=== PATIENT | male | born 1965 | race Caucasian/White ===

== ENCOUNTER 2016-12-08 18:44 | Emergency (ER) | payer OTHER ==
[2016-12-08 18:47] VITALS: BP 145/95
--- NOTE | 2016-12-08 19:53 | RAD ---
HISTORY: Trauma COMPARISONS: MRI dated August 06, 2015 TECHNIQUE: Multiple contiguous axial CT scans were obtained of the head without intravenous contrast. FINDINGS: HEMORRHAGE/INFARCT: There is no hemorrhage or acute infarct. MASSES/SHIFT: There is no mass or shift. EXTRA-AXIAL SPACES: There are no extra-axial fluid collections. SULCI AND VENTRICLES: The sulci and ventricles are normal in size and position for the patient's stated age. CEREBRUM: There are no focal parenchymal abnormalities. Low-attenuation lesions of the anterior pole of the right frontal lobe are felt to represent volume averaging through sulci, with corresponding sulci noted on axial image 22 of the previous MRI. BRAINSTEM: There are no focal parenchymal abnormalities. CEREBELLUM: There are no focal parenchymal abnormalities. VESSELS: The vessels are grossly normal. PARANASAL SINUSES: The paranasal sinuses are clear. ORBITS: The orbits are unremarkable. BONES AND SOFT TISSUE: No bone or soft tissue abnormalities are noted. OTHER: None IMPRESSION: NO ACUTE INTRACRANIAL PATHOLOGY.
--- NOTE | 2016-12-08 19:56 | RAD ---
HISTORY: Fall, left facial trauma, pain COMPARISONS: May 19, 2003 TECHNIQUE: Multiple contiguous axial CT scans were obtained of the face without intravenous contrast, with coronal and sagittal multiplanar reformations. FINDINGS: BONES: There is no displaced fracture or dislocation. The orbital rim is intact. The zygomatic arch is intact. The pterygoid plates are intact. There is osteoarthritis of the temporomandibular joints ORBITS: The globes are round. The optic nerves are symmetric. The extraocular musculature is normal. There is no post septal or intraconal inflammatory change. There is no retrobulbar hematoma. PARANASAL SINUSES: The patient is status post bilateral maxillary antrectomy and partial ethmoidectomy. There is mucosal thickening of the ethmoid air cells and maxillary sinuses. There-fluid levels within the frontal sinus BRAIN AND SOFT TISSUE: Unremarkable. OTHER: None. IMPRESSION: 1. NO FACIAL FRACTURE. 2. POST SURGICAL CHANGE TO THE SINUSES 3. MODERATE SINUS MUCOSAL INFLAMMATORY DISEASE, WITH AN AIR-FLUID LEVEL IN THE FRONTAL SINUS. IN THE CORRECT CLINICAL SETTING, THIS MAY REPRESENT ACUTE SINUSITIS
--- NOTE | 2016-12-08 20:05 | RAD ---
HISTORY: Fall, lower cervical pain COMPARISONS: None TECHNIQUE: Multiple contiguous axial CT scans were obtained of the cervical spine without intravenous contrast, with coronal and sagittal multiplanar reformations. FINDINGS: BRAIN: The visualized brain is unremarkable CENTRAL CANAL: Evaluation of the central canal is limited on CT technique; however, there is no obvious canalicular mass or epidural hemorrhage. ALIGNMENT: There is mild scoliotic curvature of the spine VERTEBRAL BODIES: There is multilevel anterolateral marginal osteophyte formation. JOINTS: There is uncovertebral and facet osteoarthritic change. There is osteoarthritis of the atlantoaxial articulation. MUSCULATURE: Unremarkable INTERVERTEBRAL DISCS: There is diffuse loss of intervertebral disc height. AXIAL IMAGES: C2-C3: There is no osseous neural foraminal narrowing or central canal stenosis. C3-C4: There is moderate right and mild left neural foraminal narrowing secondary to uncovertebral hypertrophy. There is associated osseous central canal stenosis. C4-C5: There is no osseous neural foraminal narrowing or central canal stenosis. C5-C6: There is no osseous neural foraminal narrowing or central canal stenosis. C6-C7: There is bilateral uncovertebral hypertrophy. There is severe left neural foraminal narrowing. There is no significant central canal stenosis. C7-T1: There is no osseous neural foraminal narrowing or central canal stenosis. SOFT TISSUES: The visualized soft tissues of the neck are unremarkable. The prevertebral fat stripe is preserved. OTHER: None. IMPRESSION: DEGENERATIVE DISC DISEASE AND OSTEOARTHRITIS. NO ACUTE OSSEOUS INJURY TO THE CERVICAL SPINE
--- NOTE | 2016-12-08 20:13 | RAD ---
HISTORY: Trauma, left upper chest pain COMPARISONS: None TECHNIQUE: Multiple contiguous axial CT scans of the chest were obtained without intravenous contrast. Coronal and sagittal multiplanar reformations are also submitted for review. FINDINGS: The study is limited by the lack of intravenous contrast. This limits evaluation of the solid organs and vasculature. NECK AND THYROID: The lower neck and thyroid are unremarkable. CHEST WALL: There is no lower cervical, axillary, or supraclavicular lymphadenopathy by size criteria. HEART AND PERICARDIUM: The heart is unremarkable. AORTA AND PULMONARY VASCULATURE: The aorta and pulmonary vasculature are normal. MEDIASTINUM: There is no mediastinal lymphadenopathy by size criteria. KAMLA: There is no hilar lymphadenopathy by size criteria. AIRWAY AND ESOPHAGUS: The airway is unremarkable, without endobronchial filling defect. The esophagus is grossly normal. LUNG PARENCHYMA: The lungs are clear. PLEURA: No pleural abnormalities are noted. UPPER ABDOMEN: The upper abdomen is unremarkable. BONES AND SOFT TISSUES: There is mild anterolateral marginal osteophyte formation along the thoracic spine. There is mild osteoarthritis of the costovertebral articulations. There is no displaced rib fracture. There is preservation of the vertebral body heights. OTHER: None. IMPRESSION: 1. NO ACUTE CT PATHOLOGY OF THE CHEST. 2. MILD DEGENERATIVE CHANGES OF THE THORACIC SPINE, WITHOUT ACUTE OSSEOUS INJURY TO THE THORACIC SPINE
--- NOTE | 2016-12-08 20:40 | UC ---
Shawn Pearce Alok, scribed for Nicolas Norman MD on 12/08/16 at 1909 . Truncal Trauma HPI - HPI Summary HPI Summary: 51M presents to the [facility] with neck pain and left shoulder pain following fall out of tree while at work at 1000. Pt states he fell about 25 feet down, hitting the left side of his face on a branch, and then landing on his feet. Following incident pt noted ROSAS, and epistaxis which have subsided since. 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 Pt also notes nausea, nose soreness , and right arm rash. Pt denies CP, abd pain, dyspnea, LOC, or changes in vision. PMHx includes h/o migraine. - History Of Current Complaint Chief Complaint: UCTrauma Stated Complaint: FACE,NECK INJURY Time Seen by Provider: 12/08/16 18:56 Hx Obtained From: Patient Onset/Duration: Lasting Hours, Still Present Onset Of Pain: Immediate Severity Initially: Moderate Severity Currently: Moderate Mechanism Of Injury: Fall From Height Of: - 25 feet Aggravating Factor(s): Nothing Alleviating factor(s): OTC Medication - Excedrin migraine Associated Signs And Symptoms: Positive: Nausea. Negative: Chest Pain, Abdominal Pain, Fever - Allergies/Home Medications Allergies/Adverse Reactions: Allergies Allergy/AdvReac Type Severity Reaction Status Date / Time Acetaminophen [From Tylenol] AdvReac Severe "MAKES ME Verified 12/08/16 18:49 VOMIT" PMH/Surg Hx/FS Hx/Imm Hx - Surgical History Surgical History: Yes Surgery Procedure, Year, and Place: TONSIECTOMY, NASAL SURGERY, [facility] - Family History Known Family History: Positive: Cardiac Disease - [place], Diabetes, Other - migraine , asthma - Social History Occupation: Employed Full-time Lives: With Family Alcohol Use: Rare Substance Use Type: None Smoking Status (MU): Unknown if Ever Smoked Review of Systems Constitutional: Negative Skin: Other - ABDRASION RT INNER ARM Eyes: Negative ENT: Other - RT CHEEK PAIN Respiratory: Negative Cardiovascular: Negative Gastrointestinal: Negative Genitourinary: Negative Motor: Negative Neurovascular: Negative Musculoskeletal: Myalgia Neurological: Negative Psychological: Negative All Other Systems Reviewed And Are Negative: Yes Physical Exam Triage Information Reviewed: Yes Appearance: Well-Appearing, No Pain Distress Vital Signs: Initial Vital Signs Temp 98.1 F 12/08/16 18:47 Pulse 84 12/08/16 18:47 Resp 16 12/08/16 18:47 BP 145/95 12/08/16 18:47 Pulse Ox 98 12/08/16 18:47 Vital Signs Reviewed: Yes Eyes: Positive: Other: - EOMI, RESHMA ENT: Positive: Other: - Tender right checek Neck: Positive: Other: - Pt is wearing a neck collar. Tenderness left of the paraspinous area around T2 in the trapezius muscle Respiratory: Positive: Lungs clear, Normal breath sounds Cardiovascular: Positive: RRR Abdomen Description: Positive: Nontender, Soft Bowel Sounds: Positive: Present Musculoskeletal: Positive: Other: - Pt wearing neck collar. Tender right cheek. Tender left of the paraspinous area around T2 in the trapezius muscle. Arms, legs full ROM, good strength, no neurological deficit. Neurological Exam: Normal Neurological: Positive: Other: - A&Ox3. Sensory/Motor Intact Psychological: Positive: Other: - affect/mood appropriate Skin: Positive: Other - warm, dry, color reflects adequate perfusion Diagnostics - Laboratory Diagnostic Studies Completed/Ordered: Brain CT - IMPRESSION: NO ACUTE INTRACRANIAL PATHOLOGY. Cervical Spine CT - IMPRESSION: DEGENERATIVE DISC DISEASE AND OSTEOARTHRITIS. NO ACUTE OSSEOUS INJURY TO THE CERVICAL SPINE. Chest CT - IMPRESSION: 1. NO ACUTE CT PATHOLOGY OF THE CHEST. 2. MILD DEGENERATIVE CHANGES OF THE THORACIC SPINE, WITHOUT ACUTE OSSEOUS INJURY TO THE THORACIC SPINE. Maxillofacial CT - IMPRESSION: 1. NO FACIAL FRACTURE. 2. POST SURGICAL CHANGE TO THE SINUSES. 3. MODERATE SINUS MUCOSAL INFLAMMATORY DISEASE, WITH AN AIR-FLUID LEVEL IN THE FRONTAL. SINUS. IN THE CORRECT CLINICAL SETTING, THIS MAY REPRESENT ACUTE SINUSITIS Truncal Trauma Course/Dx - Course Course Of Treatment: Pt medications reviewed this visit. DISCUSSES RESULTS WITH PATIENT/SON. PATIENT'S ONLY PAIN AT THIS TIME IS LEFT LOWER NECK/ PARASPINOUS. NO NEUROLOGIC DEFICITS. DISCUSSED SINUSITIS FINDINGS WITH PATIENT, HE DECLINED RX ABX. - Differential Dx/Diagnosis Provider Diagnoses: HEAD, FACE, NECK AND CHEST INJURY FROM FALL FROM TREE. Discharge - Discharge Plan Condition: Stable Disposition: HOME Patient Education Materials: Head Injury (ED), Cervical Sprain (ED) Referrals: [facility] PHYSICIAN REFERRAL [Outside] No Primary Care Phys,NOPCP [Primary Care Provider] - Additional Instructions: FOLLOW UP WITH YOUR DOCTOR. RETURN TO THE EMERGENCY DEPARTMENT FOR ANY WORSENING OF YOUR CONDITION; PAIN, WEAKNESS, NUMBNESS OR QUESTIONS OR CONCERNS. The documentation as recorded by the Shawn hannah Alok accurately reflects the service I personally performed and the decisions made by me, Nicolas Norman MD.
== END 2016-12-08 20:30 | disposition home or self-care (01) ==
LOC: UCEAST 18:44
DX: S09.90XA Unspecified injury of head, initial encounter (principal); S09.93XA Unspecified injury of face, initial encounter; S19.9XXA Unspecified injury of neck, initial encounter; S29.9XXA Unspecified injury of thorax, initial encounter; W14.XXXA Fall from tree, initial encounter; Y93.9 Activity, unspecified; Y92.9 Unspecified place or not applicable; R11.0 Nausea; Z88.6 Allergy status to analgesic agent; M51.34 Other intervertebral disc degeneration, thoracic region; M50.30 Other cervical disc degeneration, unspecified cervical region
CPT/HCPCS: 70450; 70486; 71250; 72125; 99211; G0463

== ENCOUNTER 2019-01-06 10:37 | Emergency (ER) | payer OTHER ==
--- OUTSIDE RECORDS SUMMARY | 2019-01-06 10:44 | XMS REPORT | Continuity of Care Document ---
:1965 External Reference #:[id number] Author Name Delaney Farfan O.D. Address [address] [place] [address] Care Team Providers Name Role Phone Georgi Rodriguez M.D. Primary Care Physician Unavailable Payers Date Identification Numbers Payment Provider Subscriber Policy Number: [id number] [employer] Ppo/Pos/Epo/Nap Aaliyah Fierro Group Number: [id number] [address] PayID: [id number] [place] [address] Problems Active Problems Provider Date Essential hypertension Onset: Retinal hemorrhage Delaney Farfan O.D. Onset: 11/08/2018 Hypermetropia Delaney Farfan O.D. Onset: 11/08/2018 Presbyopia Delaney Farfan O.D. Onset: 11/08/2018 Regular astigmatism Delaney Farfan O.D. 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 ETOH Use Rarely consumes alcohol Tobacco Use Start: Unknown End: Dip Unknown Recreational Drug Use Denies Drug Use Smoking Status Reviewed: 01/03/19 Dip Allergies, Adverse Reactions, Alerts Active Allergies Reaction Severity Comments Date Tylenol Vomitting 10/21/2014 Medications Description No Active Medications Vital Signs Date Vital Result Comment 10/21/2014 4:54pm BP Systolic 139 mmHg BP Diastolic 92 mmHg Procedures Date Code Description Status 11/08/2018 12471 Determination Of Refractive State Completed 11/08/2018 45781 New Patient Comprehensive Exam Completed 10/21/2014 39080 Determination Of Refractive State Completed 10/21/2014 59587 Est Patient Comprehensive Exam Completed 01/10/2013 75405 Contact Lens For Treatment Of Ocular Surface Disease Completed 12/21/2010 40569 Determination Of Refractive State Completed 12/21/2010 62025 New Patient Comprehensive Exam Completed 08/20/2007 94801 Determination Of Refractive State Completed 08/20/2007 51986 Est Patient Comprehensive Exam Completed 07/28/2005 03009 Determination Of Refractive State Completed 07/28/2005 31733 Est Patient Comprehensive Exam Completed Encounters Type Date Location Provider Dx Diagnosis Office Visit 07/19/2013 Delaney Up, 371.42 Recurrent Erosion 2:15p , camila Jackson Corneal Office Visit 01/12/2013 Kenzie Up, 918.1 Corneal Abrasion 11:30a camila DIAZ O.D. [facility] Office Visit 01/10/2013 Jeronimo Up, 918.1 Corneal Abrasion 12:00p camila DIAZ M.D. [facility] Plan of Treatment Future Appointment(s):04/04/2019 7:00 pm - Delaney Farfan O.D. at Ruben Estrdaa MD, 01/03/2019 - Delaney Farfan O.D.H35.62 Retinal hemorrhage, left eyeComments:Smoking can increase the risk of developing or worsening any eye related disease, as well as affect your overall health. If you are a smoker, we strongly recommend that you quit.If you are not a smoker, we strongly recommend that you do not start. If you notice any changes in your vision, please call the office to be seenFollow up:3 months DFE
[2019-01-06 10:56] VITALS: BP 147/102
--- NOTE | 2019-01-06 11:04 | UC ---
Skin Complaint HPI - HPI Summary HPI Summary: Mr. 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 Every season he gets poison noa and he started with an itchy rash last night which is much worse this morning. - History of Current Complaint Chief Complaint: UCSkin Time Seen by Provider: 01/06/19 10:54 Stated Complaint: POISON NOA Hx Obtained From: Patient Onset/Duration: Gradual Onset Skin Exposure Onset/Duration: Days Ago Timing: Constant Onset Severity: Moderate Current Severity: Moderate Pain Intensity: 0 Location: Diffuse Character: Pruritus Aggravating Factor(s): Nothing Alleviating Factor(s): Nothing Associated Signs & Symptoms: Positive: Negative - Allergy/Home Medications Allergies/Adverse Reactions: Allergies Allergy/AdvReac Type Severity Reaction Status Date / Time acetaminophen Allergy Vomiting Verified 01/06/19 10:44 Home Medications: Home Medications NK [No Home Medications Reported] 01/06/19 [History Confirmed 01/06/19] PMH/Surg Hx/FS Hx/Imm Hx Previously Healthy: Yes - Surgical History Surgical History: Yes Surgery Procedure, Year, and Place: TONSILECTOMY, NASAL SURGERY, [facility] - Family History Known Family History: Positive: Cardiac Disease - [place], Diabetes, Other - migraine , asthma - Social History Alcohol Use: Rare Substance Use Type: None Smoking Status (MU): Former Smoker Type: Smokeless Tobacco Amount Used/How Often: 1 can/ every other day Have You Smoked in the Last Year: No Review of Systems All Other Systems Reviewed And Are Negative: Yes Skin: Positive: Rash Respiratory: Positive: Negative Physical Exam - Summary Physical Exam Summary: Is nontoxic in appearance with stable vital signs. Triage Information Reviewed: Yes Appearance: Well-Appearing Vital Signs: Initial Vital Signs Temp 97.2 F 01/06/19 10:45 Pulse 58 01/06/19 10:45 Resp 18 01/06/19 10:45 BP 147/102 01/06/19 10:45 Pulse Ox 99 01/06/19 10:45 Vital Signs Reviewed: Yes Eyes: Positive: Conjunctiva Clear ENT: Positive: Normal ENT inspection Respiratory Exam: Normal Respiratory: Positive: Lungs clear Neurological Exam: Normal Skin: Positive: Rashes - He has diffuse erythema on his left arm and axilla. And also scattered areas over his abdomen. Course/Dx - Course Course Of Treatment: This is certainly likely to be a contact dermatitis and I will treat him with a steroid burst and taper. - Diagnoses Provider Diagnosis: Contact dermatitis Discharge - Sign-Out/Discharge Documenting (check all that apply): Patient Departure All imaging exams completed and their final reports reviewed: No Studies - Discharge Plan Condition: Stable Disposition: HOME Patient Education Materials: Contact Dermatitis (ED) Referrals: No Primary Care Phys,NOPCP [Primary Care Provider] - - Billing Disposition and Condition Condition: STABLE Disposition: Home
== END 2019-01-06 11:15 | disposition home or self-care (01) ==
LOC: UCEAST 10:37
DX: L25.9 Unspecified contact dermatitis, unspecified cause (principal); Z87.891 Personal history of nicotine dependence
CPT/HCPCS: 99212; G0463

== ENCOUNTER 2019-06-28 13:15 | Emergency (ER) | payer OTHER ==
--- OUTSIDE RECORDS SUMMARY | 2019-06-28 13:22 | XMS REPORT | Summary of Care ---
:1965 Author Organization [facility] Address [address] [place] [address] Care Team Providers Name Role Phone Georgi Rodriguez Primary Care Provider Reason for Visit Reason Comments Cough x2 weeks, productive Encounter Details Date Type Department Care Team Description 06/07/2019 Office Visit Letty Brown, Acute bronchitis, unspecified organism (Primary Dx); Practice DRYING EQUIPMENT OPERATOR Cough; [address] [facility] [place] [address] [place] [address] [phone] Allergies No Known Allergiesdocumented as of this encounter (statuses as of 06/07/2019) Medications Medication Sig Dispensed Refills Start Date End Date Status Nicotine Polacrilex 4 mg by 270 Tab 2 04/09/2018 Active (NICORETTE STARTER Mouth/Throat KIT) 4 MG Mouth/Throat route EVERY ONE Gum HOUR NEEDED (chew). triamcinolone Apply to 454 g 0 01/16/2019 Active (KENALOG,ARISTOCORT) affected areas 2 0.1 % Apply externally x a day Cream amoxicillin-clavulanic Take 1 Tab by 20 Tab 0 06/07/2019 06/17/2019 Active acid (AUGMENTIN 875 mouth TWICE MG) 875-125 MG Oral DAILY for 10 TabIndications: Acute days. bronchitis, unspecified organism guaiFENesin-codeine Take 10 mL by 420 mL 0 06/07/2019 Active (ROBITUSSIN AC) 100-10 mouth EVERY FOUR MG/5ML Oral HOURS NEEDED SolutionIndications: (cough). Max Cough Daily Amount: 60 mL. documented as of this encounter (statuses as of 06/07/2019) Active Problems Problem Noted Date Penile lump 03/11/2019 Overview: Added automatically from request for surgery [id number] Ankle pain, right 01/14/2014 Heel pain 01/14/2014 Obesity Migraine documented as of this encounter (statuses as of 06/07/2019) Resolved Problems Problem Noted Date Resolved Date Elevated blood pressure reading without diagnosis of 08/21/2017 hypertension documented as of this encounter (statuses as of 06/07/2019) Social History Tobacco Use Types Packs/Day Years Used Date Former Smoker Cigarettes 3 Smokeless Tobacco: Current User Snuff Tobacco Cessation: Ready to Quit: No; Counseling Given: Yes Alcohol Use Drinks/Week oz/Week Comments No rare Sex Assigned at Date Recorded Not on file Job Start Date Occupation Industry Not on file Not on file Not on file Travel History Travel Start Travel End No recent travel history available. documented as of this encounter Last Filed Vital Signs Vital Sign Reading Time Taken Comments Blood Pressure 170/90 06/07/2019 8:41 AM EST Pulse 66 06/07/2019 8:41 AM EST Temperature 36.3 06/07/2019 8:41 AM EST C (97.4 F) Respiratory Rate - - Oxygen Saturation 97% 06/07/2019 8:41 AM EST Inhaled Oxygen Concentration - - Weight 102.1 kg (225 lb) 06/07/2019 8:41 AM EST Height - - Body Mass Index 29.69 03/27/2019 8:55 AM EDT documented in this encounter Patient Instructions Patient InstructionsLetty Chaney FNP - 06/07/2019 8:40 AM ESTRest Fluids Steam may help loosen congestion Mucinex thins mucus salt water gargle as needed for sore/scratchy throat Call if symptoms fail to resolve or worsen documented in this encounter Progress Notes Letty Chaney FNP - 06/07/2019 8:40 AM EST PATIENT: Francisco Fierro : 1965 DATE OF SERVICE: 06/07/2019 CHIEF COMPLAINT: Chief Complaint Patient presents with Cough x2 weeks, productive Subjective HISTORY OF PRESENT ILLNESS: Francisco Fierro is a 53-y.o. male. HPI Chest congestion x 2 weeks - cough productive - not improving - worse at night. Has been taking OTC decongestant. Has not smoked in years but does use chewing tobacco Past Medical History: Diagnosis Date Bronchitis Elevated blood pressure reading without diagnosis of hypertension Hyperplastic colon polyp 2018 10 year Migraine Obesity Family History Problem Relation Age of Onset Asthma Sister Current Outpatient Medications Medication Sig amoxicillin-clavulanic acid (AUGMENTIN 875 MG) 875-125 MG Oral Tab Take 1 Tab by mouth TWICE DAILY for 10 days. guaiFENesin-codeine (ROBITUSSIN AC) 100-10 MG/5ML Oral Solution Take 10 mL by mouth EVERY FOUR HOURS NEEDED (cough). Max Daily Amount: 60 mL. Nicotine Polacrilex (NICORETTE STARTER KIT) 4 MG Mouth/Throat Gum 4 mg by Mouth/Throat route EVERY ONE HOUR NEEDED (chew). triamcinolone (KENALOG,ARISTOCORT) 0.1 % Apply externally Cream Apply to affected areas 2 x aday No current facility-administered medications for this visit. No Known Allergies Social History Socioeconomic History Marital status: Single Spouse name: Not on file Number of children: Not on file Years of education: Not on file Highest education level: Not on file Occupational History Not on file Social Needs Financial resource strain: Not on file Food insecurity Worry: Not on file Inability: Not on file Transportation needs Medical: Not on file Non-medical: Not on file Tobacco Use Smoking status: Former Smoker Years: 3.00 Types: Cigarettes Smokeless tobacco: Current User Types: Snuff Substance and Sexual Activity Alcohol use: No Comment: rare Drug use: No Sexual activity: Yes Partners: Female Lifestyle Physical activity Days per week: Not on file Minutes per session: Not on file Stress: Not on file Relationships Social connections Talks on phone: Not on file Gets together: Not on file Attends mosque service: Not on file Active member of club or organization: Not on file Attends meetings of clubs or organizations: Not on file Relationship status: Not on file Intimate partner violence Fear of current or ex partner: Not on file Emotionally abused: Not on file Physically abused: Not on file Forced sexual activity: Not on file Other Topics Concern Back Care Not Asked Bike Helmet Not Asked Blood Transfusions Not Asked Caffeine Concern Not Asked Exercise Not Asked Hobby Hazards Not Asked International Travel Not Asked Service Not Asked Occupational Exposure Not Asked Seat Belt Not Asked Self-Exams Not Asked Sleep Concern Not Asked Special Diet Not Asked Stress Concern Not Asked Weight Concern Not Asked Social History Narrative legal technician REVIEW OF SYSTEMS: Review of Systems Constitutional: Positive for malaise/fatigue. Negative for chills and fever. HENT: Negative for congestion, ear pain and sore throat. Respiratory: Positive for cough, sputum production, shortness of breath and wheezing. Musculoskeletal: Negative for myalgias. Neurological: Negative for dizziness and headaches. Objective PHYSICAL EXAM: VITALS: BP (!) 170/90 | Pulse 66 | Temp 97.4 F (36.3 C) (Tympanic) | Wt 225 lb (102.1 kg) | SpO2 97% | BMI 29.69 kg/m Body mass index is 29.69 kg/m. Physical Exam Vitals signs reviewed. Constitutional: General: He is not in acute distress. Appearance: Normal appearance. HENT: Head: Normocephalic and atraumatic. Right Ear: Tympanic membrane normal. Nose: Nose normal. Mouth/Throat: Lips: [place]. Mouth: Mucous membranes are moist. Pharynx: Oropharynx is clear. Uvula midline. Eyes: Conjunctiva/sclera: Conjunctivae normal. Pupils: Pupils are equal, round, and reactive to light. Neck: Musculoskeletal: Normal range of motion. Cardiovascular: Rate and Rhythm: Normal rate and regular rhythm. Pulmonary: Effort: Pulmonary effort is normal. No respiratory distress. Comments: harsh breath sounds and barking cough with deep breath Chest: Chest wall: No tenderness. Skin: General: Skin is warm and dry. Capillary Refill: Capillary refill takes less than 2 seconds. Coloration: Skin is not pale or sallow. Neurological: Mental Status: He is alert and oriented to person, place, and time. Gait: Gait normal. Psychiatric: Mood and Affect: Mood normal. Behavior: Behavior normal. ASSESSMENT / IMPRESSION: ICD-9-CM ICD-10-CM 1. Acute bronchitis, unspecified organism 466.0 J20.9 amoxicillin-clavulanic acid (AUGMENTIN 875 MG)875-125 MG Oral Tab 2. Cough 786.2 R05 guaiFENesin-codeine (ROBITUSSIN AC) 100-10 MG/5ML Oral Solution 3. Tobacco chew use 305.1 Z72.0 advised to stop Plan Rest Fluids Steam may help loosen congestion Mucinex thins mucus salt water gargle as needed for sore/scratchy throat Call if symptoms fail to resolve or worsen Author: DAMION Gaitan 06/07/2019 08:54 documented in this encounter Plan of Treatment Health Maintenance Due Date Last Done Comments DTaP/Tdap/Td Vaccines (1 - 09/19/1975 Tdap) ZOSTER IMMUNIZATION SERIES (1 2014 of 2) INFLUENZA VACCINE (#1) 2019 DIABETES SCREENING 12/11/2019 12/10/2018, 08/21/2017, 08/09/2016 LIPID DISORDER SCREENING 12/11/2019 12/10/2018, 08/21/2017 DEPRESSION SCREENING 01/17/2020 01/16/2019 Colonoscopy 09/21/2027 09/20/2017 HEPATITIS A IMMUNIZATION Aged Out No longer eligible based SERIES on patient's age to complete this topic HPV IMMUNIZATION SERIES Aged Out No longer eligible based on patient's age to complete this topic MENINGOCOCCAL VACCINE IMM Aged Out No longer eligible based on patient's age to complete this topic PNEUMOCOCCAL 0-64 YRS Aged Out No longer eligible based on patient's age to complete this topic documented as of this encounter Results Not on filedocumented in this encounter Visit Diagnoses Diagnosis Acute bronchitis, unspecified organism Cough Tobacco chew use Tobacco use disorder documented in this encounter Insurance Payer Benefit Plan / Subscriber ID Effective Dates Phone Address Type Group AETNA COMMERCIAL AETNA xxxxxxxxxx 2012-Present Aetna Guarantor Name Account Type Relation to Date of Phone Billing Address Patient Francisco Fierro Personal/Family 1965 [id number] [phone] [place], [place] (Work) [id number] documented as of this encounter Advance Directives Code Status Date Activated Date Inactivated Comments Full Code 03/27/2019 10:55 AM Does the patient have decision making capacity? Yes Order was discussed with: Patient I discussed all options and patient/surrogate requested and agreed to: Full Code"
--- OUTSIDE RECORDS SUMMARY | 2019-06-28 13:22 | XMS REPORT | Summary of Care ---
:1965 Author Organization [facility] Address [address] [place] [address] Care Team Providers Name Role Phone MichaelGeorgi morin Primary Care Provider Reason for Visit Reason Comments Follow Up W/MRI Encounter Details Date Type Department Care Team Description 05/20/2019 Office Visit [facility] Matthew, Penile lump (Primary [place] Ana Keller MD Dx) [address] [place] [address] [place] [address] [phone] Allergies No Known Allergiesdocumented as of this encounter (statuses as of 05/20/2019) Medications Medication Sig Dispensed Refills Start Date End Date Status Nicotine Polacrilex 4 mg by 270 Tab 2 04/09/2018 Active (NICORETTE STARTER KIT) Mouth/Throat 4 MG Mouth/Throat Gum route EVERY ONE HOUR NEEDED (chew). triamcinolone Apply to affected 454 g 0 01/16/2019 Active (KENALOG,ARISTOCORT) areas 2 x a day 0.1 % Apply externally Cream documented as of this encounter (statuses as of 05/20/2019) Active Problems Problem Noted Date Penile lump 03/11/2019 Overview: Added automatically from request for surgery [id number] Ankle pain, right 01/14/2014 Heel pain 01/14/2014 Obesity Migraine documented as of this encounter (statuses as of 05/20/2019) Resolved Problems Problem Noted Date Resolved Date Elevated blood pressure reading without diagnosis of 08/21/2017 hypertension documented as of this encounter (statuses as of 05/20/2019) Social History Tobacco Use Types Packs/Day Years Used Date Former Smoker Cigarettes 3 Smokeless Tobacco: Current User Snuff Alcohol Use Drinks/Week oz/Week Comments No rare Sex Assigned at Date Recorded Not on file Job Start Date Occupation Industry Not on file Not on file Not on file Travel History Travel Start Travel End No recent travel history available. documented as of this encounter Last Filed Vital Signs Not on filedocumented in this encounter Progress Notes Arianna Castro MD - 05/20/2019 11:30 AM EST PATIENT: Francisco Fierro : 1965 DATE OF SERVICE: 05/20/2019 REFERRING PRACTITIONER: Arianna Castro PRIMARY CARE PROVIDER: Georgi Rodriguez CHIEF COMPLAINT: Chief Complaint Patient presents with Follow Up W/MRI Subjective HISTORY OF PRESENT ILLNESS: Francisco Fierro is a 53-y.o. male who presents for followup of penile lump He has had a normal ultrasound, MRI and cystoscopy He states he still has symptoms of been a lump and inadequate erection No new symptoms MR PELVIS W AND WO CONTRAST Date of service: 04/01/2019 3:47 PM Provided clinical information: 53 years, Male, "Penile lump- USs non diagnostic - Penile MRI as suggested by Radiologist" Procedure and materials: Multiplanar multisequence MR imaging of the pelvis including the penis without and with IV contrast including diffusion-weighted sequences. Comparison studies: Correlation with prior ultrasound dated 02/26/2019. OBSERVATIONS: No evidence of contrast-enhancing masses within the penis. No significant restricted diffusion. No anatomic/structural abnormality noted. No suspicious pelvic lymph nodes in the visualized portion of the pelvis. IMPRESSION Penile MRI demonstrates no significant abnormality. Signed by Cindi Varghese on 04/09/2019 9:04 AM Current Outpatient Medications Medication Sig Nicotine Polacrilex (NICORETTE STARTER KIT) 4 MG Mouth/Throat Gum 4 mg by Mouth/Throat route EVERY ONE HOUR NEEDED (chew). triamcinolone (KENALOG,ARISTOCORT) 0.1 % Apply externally Cream Apply to affected areas 2 x aday No current facility-administered medications for this visit. No Known Allergies REVIEW OF SYSTEMS: All remaining review of systems was negative except for as noted in the history of present illness/subjective. Objective PHYSICAL EXAMINATION: VITALS: There were no vitals taken for this visit. There is no height or weight on file to calculate BMI. GENERAL: healthy, well nourished, in no distress. LUNGS: good air entry bilaterally, no crackles or wheezes. HEART: regular rhythm, no murmurs, no gallops, no rubs. ABDOMEN: no palpable masses, organomegaly or hernias, no peritoneal, flank or bladder tenderness. GENITOURINARY: defer exam. LABORATORY DATA: Urine today in the office is na DIAGNOSTIC DATA: Diagnostic tests reviewed today: MRI Plan IMPRESSION/PLAN: During this visit, I reviewed the relevant imaging, pathology reports, laboratory reports, and previous clinical notes. Additional counseling and preparation time (which represents > 50 % of total visit time) was necessary for data gathering, reviewing studies and discussing options, in excess of interviewing the patient and/or family members. This time was used to discuss the the complex nature of the problem, various treatment options available and the expected outcomes of each to the patient/family's satisfaction. I have explained the normal findings on ultrasound MRI and cystoscopy. In view of his persistent symptoms I would recommend review/second opinion by an urologist at [facility] Dr. Ken. Patient is keento proceed. An appointment has been arranged for him Follow Up: Schedule follow-up here as needed if symptoms worsen.. Author: Arianna Castro MD 05/20/2019 11:14 documented in this encounter Plan of Treatment Health Maintenance Due Date Last Done Comments ZOSTER IMMUNIZATION SERIES (1 2014 of 2) INFLUENZA VACCINE (#1) 2019 DIABETES SCREENING 12/11/2019 12/10/2018, 08/21/2017, 08/09/2016 LIPID DISORDER SCREENING 12/11/2019 12/10/2018, 08/21/2017 DEPRESSION SCREENING 01/17/2020 01/16/2019 Colonoscopy 09/21/2027 09/20/2017 HPV IMMUNIZATION SERIES Aged Out No longer eligible based on patient's age to complete this topic MENINGOCOCCAL VACCINE IMM Aged Out No longer eligible based on patient's age to complete this topic PNEUMOCOCCAL 0-64 YRS Aged Out No longer eligible based on patient's age to complete this topic documented as of this encounter Results Not on filedocumented in this encounter Visit Diagnoses Diagnosis Penile lump - Primary Unspecified disorder of penis documented in this encounter Insurance Payer Benefit Plan / Subscriber ID Effective Dates Phone Address Type Group A[employer] COMMERCIAL AETNA xxxxxxxxxx 2012-Present Aetna Guarantor Name Account Type Relation to Date of Phone Billing Address Patient Francisco Fierro Personal/Family [id number] [phone] [place], [place] (Work) [id number] documented as of this encounter Advance Directives Code Status Date Activated Date Inactivated Comments Full Code 03/27/2019 10:55 AM Does the patient have decision making capacity? Yes Order was discussed with: Patient I discussed all options and patient/surrogate requested and agreed to: Full Code
[2019-06-28] MEDS ORDERED: Ibuprofen TAB* 600 MG PO ONE (13:59)
[2019-06-28] MEDS ORDERED: Ibuprofen TAB* 400 MG PO ONE (14:02)
[2019-06-28 14:15] LABS: Influenza A Molecular POSITIVE (Negative)
--- NOTE | 2019-06-28 14:21 | UC ---
FLU HPI - HPI Summary HPI Summary: ONSET THIS MORNING OF COUGH, CHEST CONGESTION, FATIGUE, FEVER. NO FLU SHOT THIS SEASON. - History of Current Complaint Chief Complaint: UCRespiratory Stated Complaint: CHEST CONGESTION Time Seen by Provider: 06/28/19 14:15 Hx Obtained From: Patient Onset/Duration: Gradual Onset, Lasting Hours, Still Present Severity Currently: Moderate Severity Initially: Moderate Pain Intensity: 10 Pain Scale Used: 0-10 Numeric Associated Signs & Symptoms: Positive: Fever, Myalgia, Cough, Nasal Congestion, Headache - Allergy/Home Medications Allergies/Adverse Reactions: Allergies Allergy/AdvReac Type Severity Reaction Status Date / Time acetaminophen Allergy Vomiting Verified 06/28/19 13:57 PMH/Surg Hx/FS Hx/Imm Hx Previously Healthy: Yes - Surgical History Surgical History: Yes Surgery Procedure, Year, and Place: TONSILECTOMY, NASAL SURGERY, [facility] - Family History Known Family History: Positive: Cardiac Disease - [place], Diabetes, Other - migraine , asthma - Social History Alcohol Use: Rare Substance Use Type: None Smoking Status (MU): Former Smoker Type: Smokeless Tobacco Amount Used/How Often: 1 can/ every other day Have You Smoked in the Last Year: No Review of Systems All Other Systems Reviewed And Are Negative: Yes Constitutional: Positive: Fever, Chills, Fatigue ENT: Positive: Nasal Discharge Respiratory: Positive: Cough Cardiovascular: Positive: Negative Gastrointestinal: Positive: Nausea Musculoskeletal: Positive: Myalgia Neurological: Positive: Headache Physical Exam Triage Information Reviewed: Yes Appearance: No Pain Distress, Well-Nourished, Ill-Appearing - MODERATELY ILL/ FATUGUED APPEARING. Vital Signs: Initial Vital Signs Temp 105.5 F 06/28/19 13:53 Pulse 110 06/28/19 13:53 Resp 22 06/28/19 13:53 BP 129/97 06/28/19 13:53 Pulse Ox 99 06/28/19 13:53 Laboratory Tests 06/28/19 14:12 Influenza A (Rapid) Positive A Vital Signs Reviewed: Yes Eyes: Positive: Conjunctiva Clear ENT: Positive: Hearing grossly normal Neck: Positive: Supple Respiratory Exam: Normal Cardiovascular: Positive: Tachycardia Abdomen Description: Positive: Soft Musculoskeletal: Positive: No Edema Neurological: Positive: Alert Psychological: Positive: Age Appropriate Behavior Skin: Negative: Rashes Flu Course/Dx - Course Course Of Treatment: SWAB POSITIVE FOR INFLUENZA A. TEMP WAS 105.5 WITH TEMPORAL ARTERY SCANNER. 102.9 ORALLY. PATIENT GIVEN 800 MG IBUPROFEN AND HAD PIV INSERTED. 1 L NORMAL SALINE STARTED. 1ST DOSE TAMIFLU ADMINISTERED HERE IN UC. PT SIGNED OUT TO DR. SANCHEZ AT 2:30 PM SHIFT CHANGE - Differential Dx/Diagnosis Provider Diagnosis: Influenza A Discharge ED - Sign-Out/Discharge Documenting (check all that apply): Sign-Out Patient Signing out patient TO: Delaney Sanchez - SIGN OUT SHIFT CHANGE All imaging exams completed and their final reports reviewed: No Studies - Discharge Plan Condition: Stable Disposition: HOME Prescriptions: Ondansetron ODT TAB* [Zofran Odt TAB*] 4 mg PO Q6H PRN #20 tab.odt PRN Reason: Nausea/Vomiting Oseltamivir CAP* [Tamiflu CAP*] 75 mg PO BID #10 cap Patient Education Materials: Influenza (ED) Referrals: [facility] [Outside] - If Needed Additional Instructions: SWAB POSITIVE FOR INFLUENZA A. TAMIFLU TWICE DAILY FOR 5 DAYS. OTC MEDS NEEDED FOR FEVER, BODY ACHES. STAY WELL HYDRATED AND RESTED. SEEK FOLLOW-UP IF YOU ARE NOT IMPROVING EXPECTED. GO TO THE ER IF YOUR SYMPTOMS WORSEN. - Billing Disposition and Condition Condition: STABLE Disposition: Home
[2019-06-28] MEDS ORDERED: NS 0.9% 1000 ML** 1,000 ML IV ONE (14:26)
[2019-06-28] MEDS ORDERED: Oseltamivir CAP* 75 MG CAP PO ONE (14:36)
--- NOTE | 2019-06-28 15:51 | UC ---
- Progress Note Progress Note: Reviewed H+P of this 53 yo diagnosed with influenza A. Temp has decreased and he is doing better post iv fluids. His main concern is ongoing painful cough which has kept him awake. He has used codeine suppressant and tessalon perles in the past with effect, and this has been prescribed. 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[facility], search number [id number], with codeine suppressant last rx' d 06/13/19 Course/Dx - Diagnoses Provider Diagnoses: Influenza A Discharge ED - Sign-Out/Discharge Documenting (check all that apply): Patient Departure All imaging exams completed and their final reports reviewed: No Studies - Discharge Plan Condition: Stable Disposition: HOME Prescriptions: Ondansetron ODT TAB* [Zofran Odt TAB*] 4 mg PO Q6H PRN #20 tab.odt PRN Reason: Nausea/Vomiting Oseltamivir CAP* [Tamiflu CAP*] 75 mg PO BID #10 cap Patient Education Materials: Influenza (ED) Referrals: [facility] [Outside] - If Needed Additional Instructions: SWAB POSITIVE FOR INFLUENZA A. TAMIFLU TWICE DAILY FOR 5 DAYS. OTC MEDS NEEDED FOR FEVER, BODY ACHES. STAY WELL HYDRATED AND RESTED. SEEK FOLLOW-UP IF YOU ARE NOT IMPROVING EXPECTED. GO TO THE ER IF YOUR SYMPTOMS WORSEN. - Billing Disposition and Condition Condition: STABLE Disposition: Home
[2019-06-28 16:13] VITALS: BP 125/87
== END 2019-06-28 16:06 | disposition home or self-care (01) ==
LOC: UCEAST 13:15
DX: J11.1 Influenza due to unidentified influenza virus with other respiratory manifestations (principal); Z87.891 Personal history of nicotine dependence; Z88.6 Allergy status to analgesic agent
CPT/HCPCS: 96360; 99212; A9270-GY; G0463

== ENCOUNTER 2019-09-07 13:34 | Emergency (ER) | payer OTHER ==
--- OUTSIDE RECORDS SUMMARY | 2019-09-07 13:48 | XMS REPORT | Summary of Care ---
:1965 Author Organization [facility] Address [address] [facility] [place] [address] Care Team Providers Name Role Phone MichaelGeorgi Primary Care Provider Reason for Visit Reason Comments Other abdominal pain and vomiting, started last night 12:30am, radiates to back Encounter Details Date Type Department Care Team Description 08/28/2019 Office Visit [facility] Benitez Perera MD Lower abdominal pain (Primary Dx); Practice [address] [facility] Generalized abdominal pain [address] [place], [place] [id number] [place] [address] [phone] Allergies No Known Allergiesdocumented as of this encounter (statuses as of 08/28/2019) Medications Medication Sig Dispensed Refills Start Date End Date Status Nicotine 4 mg by 270 Tab 2 04/09/2018 Discontinued Polacrilex Mouth/Throat 0 (Therapy (NICORETTE STARTER route EVERY Completed) KIT) 4 MG ONE HOUR Mouth/Throat Gum NEEDED (chew). triamcinolone Apply to 454 g 0 01/16/2019 Discontinued (KENALOG,ARISTOCOR affected 0 (Therapy T) 0.1 % Apply areas 2 x a Completed) externally Cream day guaiFENesin-codein Take 10 mL by 420 mL 0 06/07/2019 Discontinued e (ROBITUSSIN AC) mouth EVERY 0 (Therapy 100-10 MG/5ML Oral FOUR HOURS Completed) SolutionIndication NEEDED s: Cough (cough). Max Daily Amount: 60 mL. documented as of this encounter (statuses as of 08/28/2019) Active Problems Problem Noted Date Penile lump 03/11/2019 Overview: Added automatically from request for surgery [id number] Ankle pain, right 01/14/2014 Heel pain 01/14/2014 Obesity Migraine documented as of this encounter (statuses as of 08/28/2019) Resolved Problems Problem Noted Date Resolved Date Elevated blood pressure reading without diagnosis of 08/21/2017 hypertension documented as of this encounter (statuses as of 08/28/2019) Social History Tobacco Use Types Packs/Day Years Used Date Former Smoker Cigarettes 3 Smokeless Tobacco: Current User Snuff Alcohol Use Drinks/Week oz/Week Comments No rare Sex Assigned at Date Recorded Not on file documented as of this encounter Last Filed Vital Signs Vital Sign Reading Time Taken Comments Blood Pressure 122/72 08/28/2019 10:24 AM EST Pulse 85 08/28/2019 10:24 AM EST Temperature 36.3 08/28/2019 10:24 AM EST C (97.4 F) Respiratory Rate 20 08/28/2019 10:24 AM EST Oxygen Saturation 98% 08/28/2019 10:24 AM EST Inhaled Oxygen Concentration - - Weight 99.1 kg (218 lb 6.4 oz) 08/28/2019 10:24 AM EST Height 185.4 cm (6' 1") 08/28/2019 10:24 AM EST Body Mass Index 28.81 08/28/2019 10:24 AM EST documented in this encounter Progress Notes Benitez Perera MD - 08/28/2019 10:00 AM EST PATIENT: Francisco Fierro : 1965 DATE OF SERVICE: 08/28/2019 CHIEF COMPLAINT: Chief Complaint Patient presents with ? Other abdominal pain and vomiting, started last night 12:30am, radiates to back Subjective HISTORY OF PRESENT ILLNESS: Francisco Fierro is a 53-y.o. male. Pt with history of abd pain one month ago following a viral illness with fever-- resolved for a couple of weeks and then noted last night recurrence of the same quality of pain described as colicky painassociated with nausea and one episode of vomiting. Kept him up all night with crampy abd pain in a band pattern across the abd above and below the umbilicus. States his stool patterns have been normaland this time, the pain is not associated with fever. He defecates 2- 3 times per day with small caliber stools. No blood. Vomiting episodes also without blood. Described as white, foamy and "dinner contents". "it's like my dinner never moved". Nausea comes in waves and has not been prominent since about 5 am. abd pain is now subsided after a small BM but the patient notes that sometimes does nothing for the pain (when describing the last episode). Past Medical History: Diagnosis Date ? Bronchitis ? Elevated blood pressure reading without diagnosis of hypertension ? Hyperplastic colon polyp 2018 10 year ? Migraine ? Obesity Family History Problem Relation Age of Onset ? Asthma Sister No current outpatient medications on file. No current facility-administered medications for this visit. No Known Allergies Social History Socioeconomic History ? Marital status: Single Spouse name: Not on file ? Number of children: Not on file ? Years of education: Not on file ? Highest education level: Not on file Occupational History ? Not on file Social Needs ? Financial resource strain: Not on file ? Food insecurity Worry: Not on file Inability: Not on file ? Transportation needs Medical: Not on file Non-medical: Not on file Tobacco Use ? Smoking status: Former Smoker Years: 3.00 Types: Cigarettes ? Smokeless tobacco: Current User Types: Snuff Substance and Sexual Activity ? Alcohol use: No Comment: rare ? Drug use: No ? Sexual activity: Yes Partners: Female Lifestyle ? Physical activity Days per week: Not on file Minutes per session: Not on file ? Stress: Not on file Relationships ? Social connections Talks on phone: Not on file Gets together: Not on file Attends mosque service: Not on file Active member of club or organization: Not on file Attends meetings of clubs or organizations: Not on file Relationship status: Not on file ? Intimate partner violence Fear of current or ex partner: Not on file Emotionally abused: Not on file Physically abused: Not on file Forced sexual activity: Not on file Other Topics Concern ? Back Care Not Asked ? Bike Helmet Not Asked ? Blood Transfusions Not Asked ? Caffeine Concern Not Asked ? Exercise Not Asked ? Hobby Hazards Not Asked ? International Travel Not Asked ? Service Not Asked ? Occupational Exposure Not Asked ? Seat Belt Not Asked ? Self-Exams Not Asked ? Sleep Concern Not Asked ? Special Diet Not Asked ? Stress Concern Not Asked ? Weight Concern Not Asked Social History Narrative delivery and installation subcontractor REVIEW OF SYSTEMS: Review of Systems Constitutional: Negative for chills, diaphoresis, fever, malaise/fatigue and weight loss. HENT: Negative for congestion, ear discharge, ear pain, hearing loss, sinus pain and sore throat. Eyes: Negative for blurred vision, pain and discharge. Respiratory: Negative for cough, sputum production, shortness of breath and wheezing. Cardiovascular: Negative for chest pain, palpitations and leg swelling. Gastrointestinal: Positive for abdominal pain, nausea and vomiting. Negative for blood in stool, constipation, diarrhea and heartburn. Genitourinary: Negative for dysuria, flank pain, frequency and urgency. Musculoskeletal: Negative for falls, joint pain and myalgias. Neurological: Positive for dizziness (upon standing). Negative for tingling, sensory change, loss ofconsciousness, weakness and headaches. Psychiatric/Behavioral: Negative for depression. Objective PHYSICAL EXAM: VITALS: BP 122/72 (BP Location: Left arm, Patient Position: Sitting) | Pulse 85 | Temp 97.4 F(36.3 C) (Tympanic) | Resp 20 | Ht 6' 1" (1.854 m) | Wt 218 lb 6.4 oz (99.1 kg) | SpO2 98% | BMI 28.81 kg/m Body mass index is 28.81 kg/m. Physical Exam Vitals signs and nursing note reviewed. Constitutional: General: He is not in acute distress. Appearance: Normal appearance. He is well-developed. He is not ill-appearing , toxic-appearing or diaphoretic. HENT: Head: Normocephalic and atraumatic. Right Ear: Tympanic membrane and ear canal normal. There is no impacted cerumen. Left Ear: Tympanic membrane and ear canal normal. There is no impacted cerumen. Nose: Nose normal. Mouth/Throat: Mouth: Mucous membranes are dry. Pharynx: Oropharynx is clear. No oropharyngeal exudate. Eyes: General: No scleral icterus. Right eye: No discharge. Left eye: No discharge. Conjunctiva/sclera: Conjunctivae normal. Pupils: Pupils are equal, round, and reactive to light. Neck: Musculoskeletal: Normal range of motion and neck supple. No muscular tenderness. Thyroid: No thyromegaly. Cardiovascular: Rate and Rhythm: Normal rate and regular rhythm. Pulses: Normal pulses. Heart sounds: Normal heart sounds. No murmur. No friction rub. No gallop. Pulmonary: Effort: Pulmonary effort is normal. No respiratory distress. Breath sounds: Normal breath sounds. No wheezing, rhonchi or rales. Abdominal: General: Bowel sounds are normal. There is no distension. Palpations: Abdomen is soft. Tenderness: There is abdominal tenderness (global, non-localizing tenderness) . There is no right CVA tenderness, left CVA tenderness, guarding or rebound. Hernia: No hernia is present. Musculoskeletal: Normal range of motion. General: No tenderness. Lymphadenopathy: Cervical: No cervical adenopathy. Skin: General: Skin is warm and dry. Findings: No erythema or rash. Neurological: General: No focal deficit present. Mental Status: He is alert and oriented to person, place, and time. Psychiatric: Mood and Affect: Mood normal. Behavior: Behavior normal. ASSESSMENT / IMPRESSION: 1. Generalized abdominal pain Per below 2. Lower abdominal pain Abdominal films wet read by me showed normal gas pattern without air fluid levels, no signs of obstruction. He does have copious stool on the left side up through the splenic flexure and not a lot of air mixed in. Constipation could certainly explain the intermittent, colicky nature of the pain as well as the frequent, small caliber stools. However, we will assess for other etiologies as well using renal studies, liver and pancrease tests and cbc. - CBC NO DIFFERENTIAL; Future - URINALYSIS (LAB) WITH REFLEX CULTURE; Future - COMPREHENSIVE METABOLIC PANEL; Future - AMYLASE; Future - LIPASE; Future Plan Will call patient with results tomorrow. And reassess his symptoms. Author: Benitez Perera MD 08/28/2019 10:37 documented in this encounter Plan of Treatment Name Type Priority Associated Diagnoses Date/Time CBC NO DIFFERENTIAL Lab Routine Lower abdominal pain 08/28/2019 11:44 AM EST URINALYSIS (LAB) WITH Lab Routine Lower abdominal pain 08/28/2019 11:45 AM EST REFLEX CULTURE COMPREHENSIVE METABOLIC Lab Routine Lower abdominal pain 08/28/2019 11:44 AM EST PANEL AMYLASE Lab Routine Lower abdominal pain 08/28/2019 11:44 AM EST LIPASE Lab Routine Lower abdominal pain 08/28/2019 11:44 AM EST Name Type Priority Associated Diagnoses Order Schedule CBC NO DIFFERENTIAL Lab Routine Lower abdominal pain Expected: 08/28/2019 (Approximate), Expires: 08/27/2020 URINALYSIS (LAB) WITH REFLEX Lab Routine Lower abdominal pain Expected: 09/2019 CULTURE (Approximate), Expires: 02/24/2020 COMPREHENSIVE METABOLIC Lab Routine Lower abdominal pain Expected: 2019 PANEL (Approximate), Expires: 08/27/2020 AMYLASE Lab Routine Lower abdominal pain Expected: 08/28/2019 (Approximate), Expires: 08/27/2020 LIPASE Lab Routine Lower abdominal pain Expected: 08/28/2019 (Approximate), Expires: 08/27/2020 Health Maintenance Due Date Last Done Comments DTaP/Tdap/Td Vaccines (1 - 11/22/2019 Postponed from 09/19/1975 Tdap) (Patient refused) DIABETES SCREENING 12/11/2019 12/10/2018, 08/21/2017, 08/09/2016 LIPID DISORDER SCREENING 12/11/2019 12/10/2018, 08/21/2017 DEPRESSION SCREENING 01/17/2020 01/16/2019 INFLUENZA VACCINE (#1) 2020 Postponed from 02/24/2019 (Patient refused) ZOSTER IMMUNIZATION SERIES (1 08/27/2020 Postponed from 2014 of 2) (Patient refused) Colonoscopy 09/21/2027 09/20/2017 HEPATITIS A IMMUNIZATION Aged [...] filedocumented in this encounter Visit Diagnoses Diagnosis Generalized abdominal pain Abdominal pain, generalized Lower abdominal pain Abdominal pain, other specified site documented in this encounter Insurance Payer Benefit Plan / Subscriber ID Effective Dates Phone Address Type Group [employer] COMM[employer]CIAL A[employer] [id number] 2012-Present [employer] Guarantor Name Account Type Relation to Date of Phone Billing Address Patient Francisco Fierro Personal/Family 1965 [id number] [phone] [place], [place] (Work) [id number] documented as of this encounter Advance Directives Code Status Date Activated Date Inactivated Comments Full Code 03/27/2019 10:55 AM Does the patient have decision making capacity? Yes Order was discussed with: Patient I discussed all options and patient/surrogate requested and agreed to: Full Code
--- NOTE | 2019-09-07 13:57 | ED ---
Abdominal Pain/Male - HPI Summary HPI Summary: 53 year old male presents to the ED with a chief complaint of abdominal pain starting 2300 last night. Pain is constant and diffuse, radiating to his lower back. Pain is rated a 10/10 in severity. Patient ate eggs today at 0830, which did not alter the pain. Patient also reports a burning sensation in his stomach as well as diarrhea. He denies dysuria. He has had these symptoms in the past. Patient has DM. Medications reviewed. Allergies noted. - History of Current Complaint Chief Complaint: EDAbdPain Stated Complaint: ABD PAIN PER PT Time Seen by Provider: 09/07/19 13:40 Hx Obtained From: Patient Onset/Duration: Sudden Onset, Lasting Hours, Still Present Timing: Constant Severity Initially: Severe Severity Currently: Severe Pain Intensity: 10 Pain Scale Used: 0-10 Numeric Location: Diffuse, Flank Radiates: Yes Radiates to: Back Character: Sharp, Burning Alleviating Factor(s): Nothing Associated Signs And Symptoms: Positive: Back Pain, Diarrhea. Negative: Urinary Symptoms, Decreased Appetite - Allergies/Home Medications Allergies/Adverse Reactions: Allergies Allergy/AdvReac Type Severity Reaction Status Date / Time acetaminophen Allergy Vomiting Verified 09/07/19 13:37 Home Medications: Home Medications Benzonatate 200 mg PO TID PRN #40 capsule 06/28/19 [Rx] Codeine Phosphate/Guaifenesin [Codeine/Guaifenesin 100-10 mg/5Ml] 10 ml PO Q6H PRN #200 ml MDD 40ml 06/28/19 [Rx] Ondansetron ODT TAB* [Zofran Odt TAB*] 4 mg PO Q6H PRN #20 tab.odt 06/28/19 [Rx] Oseltamivir CAP* [Tamiflu CAP*] 75 mg PO BID #10 cap 06/28/19 [Rx] PMH/Surg Hx/FS Hx/Imm Hx Endocrine/Hematology History: Reports: Hx Diabetes Cardiovascular History: Reports: Hx Hypertension Denies: Hx Pacemaker/ICD Respiratory History: Denies: Hx Asthma History: Denies: Hx Dialysis, Hx Renal Disease Neurological History: Reports: Hx Migraine Psychiatric History: Denies: Hx Panic Disorder - Surgical History Surgery Procedure, Year, and Place: TONSILECTOMY, NASAL SURGERY, [facility] Infectious Disease History: No Infectious Disease History: Denies: Traveled Outside the [place] in Last 30 Days - Family History Known Family History: Positive: Cardiac Disease - [place], Diabetes, Other - migraine , asthma - Social History Alcohol Use: Rare Hx Substance Use: No Substance Use Type: Reports: None Hx Tobacco Use: Yes - dipping tobacco Smoking Status (MU): Former Smoker Type: Smokeless Tobacco Amount Used/How Often: 1 can/ every other day Have You Smoked in the Last Year: No Review of Systems Positive: Abdominal Pain, Diarrhea Positive: no symptoms reported All Other Systems Reviewed And Are Negative: Yes Physical Exam - Summary Physical Exam Summary: Appearance: The patient is well-nourished. Obvious distress. Skin: The skin is warm and dry, and skin color reflects adequate perfusion. HEENT: The head is normocephalic and atraumatic. The pupils are equal and reactive. The conjunctivae are clear and without drainage. Nares are patent and without drainage. Mouth reveals moist mucous membranes, and the throat is without erythema and exudate. The external ears are intact. The ear canals are patent and without drainage. The tympanic membranes are intact. Neck: The neck is supple with full range of motion and non-tender. There are no carotid bruits. There is no neck vein distension. Respiratory: Chest is non-tender. Lungs are clear to auscultation and breath sounds are symmetrical and equal. Cardiovascular: Heart is regular rate and rhythm. There is no murmur or rub auscultated. There is no peripheral edema and pulses are symmetrical and equal. Abdomen: The abdomen is soft. There are normal bowel sounds heard in all four quadrants and there is no organomegaly palpated. Mild tenderness diffusely. No masses palpated. Musculoskeletal: There is no back tenderness noted. Extremities are non-tender with full range of motion. There is good capillary refill. There is no peripheral edema or calf tenderness elicited. Neurological: Patient is alert and oriented to person, place and time. The patient has symmetrical motor strength in all four extremities. Cranial nerves are grossly intact. Deep tendon reflexes are symmetrical and equal in all four extremities. Psychiatric: The patient has an appropriate affect and does not exhibit any anxiety or depression. Triage Information Reviewed: Yes Vital Signs On Initial Exam: Initial Vitals Temp Pulse Resp BP Pulse Ox 97.6 F 99 16 167/141 96 09/07/19 13:34 09/07/19 13:34 09/07/19 13:34 09/07/19 13:34 09/07/19 13:34 Vital Signs Reviewed: Yes Procedures - Sedation Patient Received Moderate/Deep Sedation with Procedure: No Diagnostics - Vital Signs Vital Signs Temp Pulse Resp BP Pulse Ox 09/07/19 13:34 97.6 F 99 16 167/141 96 - Laboratory Result Diagrams: 09/07/19 14:09 09/07/19 14:09 Lab Statement: Any lab studies that have been ordered have been reviewed, and results considered in the medical decision making process. - CT AP CTA CT Interpretation Completed By: Radiologist Summary of CT Findings: IMPRESSION: 1. There is a hypo enhancing likely solid mass lesion in the body and tail of the pancreas measuring approximately 6.3 x 4.0 x 3.8 cm suspicious for pancreatic malignancy until proven otherwise. There is partial encasement of a portion of the splenic artery by this mass but no obvious invasion of other adjacent structures. 2. There is mild retroperitoneal lymphadenopathy in the left periaortic region. at the celiac axis measuring 1.4 cm in short axis, cannot exclude metastatic lymphadenopathy. 3. There are multiple ill-defined somewhat spiculated nodular densities in the peritoneum of the abdomen and pelvis including the greater omentum with the largest of these lesions in the left ventral abdomen measuring 5.5 x 2.1 cm suspicious for peritoneal and omental metastases. 4. There is dilation of loops of jejunum with air-fluid levels and transition at the level of the distal jejunum or proximal ileum suspicious for small bowel obstruction. 5. There is colonic diverticulosis without evidence for acute diverticulitis. An ED physician has reviewed this CT. - Ultrasound Gallbladder US Ultrasound Interpretation Completed By: Radiologist Summary of Ultrasound Findings: IMPRESSION: 1. NO SONOGRAPHIC EVIDENCE OF CHOLELITHIASIS OR ACUTE INFLAMMATORY CHANGE OF THE GALLBLADDER. 2. OVERLYING BOWEL GAS PREVENTED DIRECT VISUALIZATION AND MEASUREMENT OF THE COMMON BILE. DUCT THOUGH THERE IS NO DEFINITE INTRAHEPATIC BILIARY DUCT DILATATION. 3. ANECHOIC AND AVASCULAR WELL-CIRCUMSCRIBED 1.4 CM PARENCHYMAL LESION IS MOST CONSISTENT. WITH A BENIGN LIVER CYST. Abdominal Pain Male Course/Dx - Course Course Of Treatment: Mr. Fierro presented with severe abdominal pain. His pain was out of proportion to his tenderness and I was concerned about ischemic bowel. Labs were obtained, an IV was initiated and he was given pain medications. His labs were generally unremarkable aside from slightly elevated alkaline phosphatase therefore gallbladder ultrasound was obtained. This was negative. He did continue to have severe pain therefore CTA of his abdomen and pelvis were obtained. He had no aneurysm but he was found to have a pancreatic tail mass in several lesions which are likely metastatic. The radiologist read the CT scan as having a small bowel obstruction. I spoke with Dr. Fan who felt that the patient did not have a small bowel obstruction on CT scan. I spoke with Dr. Christopher who felt that an oncological workup could be obtained as an outpatient if there was no acute reason to admit the patient. The patient had received a second dose of Dilaudid and Zofran, this time with ketorolac and got complete relief of his pain. CT showed a fairly large bladder and he had been unable to give us a urine sample therefore I recommended catheterization. He did not want one and felt that he just simply did not have to go. He had some water to drink here and eventually was able to urinate fine. His pain remained completely gone and I recommended he follow up first of the week for further evaluation. He is aware of the mass and that I am recommending that he follow up with Dr. Rodriguez who likely will recommend follow-up with oncology to direct the next steps. - Diagnoses Provider Diagnoses: Abdominal mass Is Visit Related: No Discharge ED - Sign-Out/Discharge Documenting (check all that apply): Patient Departure - discharge home - Discharge Plan Condition: Stable Disposition: HOME Patient Education Materials: Soft Tissue Mass (ED) Referrals: Georgi Rodriguez MD [Medical Doctor] - Daniel Christopher MD [Medical Doctor] - Additional Instructions: Follow up with Dr. Christopher and Dr. Rodriguez within 2-3 days. Return to the ED if you experience new or worsened symptoms. - Billing Disposition and Condition Condition: STABLE Disposition: Home - Attestation Statements Document Initiated by Star: Yes Documenting Scribe: Ciro Gomez Provider For Whom Star is Documenting (Include Credential): Dr. Xander Richardson Scribcharles Attestation: Ciro Pearce, scribed for Dr. Xander Richardson on 09/07/19 at 2106. Scribe Documentation Reviewed: Yes Provider Attestation: The documentation as recorded by the scribe, Ciro Gomez accurately reflects the service I personally performed and the decisions made by me, Dr. Xander Richardson Status of Scribe Document: Viewed
[2019-09-07] MEDS ORDERED: NS 0.9% 1000 ML** 1,000 ML IV ONE (13:59)
[2019-09-07] MEDS ORDERED: HYDROmorphone INJ1* 1 MG/ML SYRINGE IV SLOW PU ONE ×2 (13:59→17:20)
[2019-09-07] MEDS ORDERED: Ondansetron INJ* 2 MG/ML VIAL IV ONE ×2 (13:59→17:20)
[2019-09-07 14:20] LABS: ABS Basophils 0.1 10^3/ul (0-0.2); ABS Eosinophils 0.3 10^3/ul (0-0.6); ABS Monocytes 0.9 10^3/ul (0-0.8); ABS Neutrophils 5.7 10^3/ul (1.5-7.7); Eosinophil % 2.9 %; Hematocrit 44 % (42-52); Hemoglobin 15.5 g/dL (14.0-18.0); Mean Corpuscular HGB Conc 35 g/dL (31-36); Mean Corpuscular Hemoglobin 31 pg (27-31); Mean Corpuscular Volume 87 fL (80-94); Mean Platelet Volume 9.8 fL (7.4-10.4); Nucleated Red Blood Cells % 0.1; Platelet Count 179 10^3/uL (150-450); Red Blood Count 5.06 10^6 /uL (4.18-5.48); Red Cell Distribution Width 14 % (10-15); White Blood Count 8.9 10^3/uL (3.5-10.8)
[2019-09-07 14:41] LABS: Albumin 4.6 g/dL (3.2-5.2); Albumin/Globulin Ratio 1.6 (1-3); BUN/Creatinine Ratio 18.6 (8-20); C Reactive Protein 10.39 mg/L (<8.01); Calcium 10.2 mg/dL (8.6-10.3); EGFR African American 92.1 (>60); EGFR Non-African American 76.1 (>60); Globulin 2.8 g/dL (2-4); Potassium 4.2 mmol/L (3.5-5.0); Total Bilirubin 0.5 mg/dL (0.2-1.0); Total Protein 7.4 g/dL (6.4-8.9)
[2019-09-07] MEDS ORDERED: Iodixanol* (CONTRAST) 320 MG/ML 100 ML SDV IV ONE (16:03)
[2019-09-07] MEDS ORDERED: Ketorolac INJ* 30 MG/ML 1 ML VIAL IV PUSH ONE (17:20)
[2019-09-07 20:31] LABS: Urine Appearance Clear; Urine Bilirubin Negative (Negative); Urine Blood Negative (Negative); Urine Color Yellow; Urine Glucose 1+(50 mg/dL) (Negative); Urine Ketones Trace (Negative); Urine Nitrite Negative (Negative); Urine Protein Negative (Negative); Urine Specific Gravity 1.031 (1.010-1.030); Urine Urobilinogen Negative (Negative)
[2019-09-07] MEDS ORDERED: HYDROcodone/ACETAMIN 5-325 MG* 1 TAB PO SCH (21:00)
[2019-09-07 21:34] VITALS: BP 151/101
== END 2019-09-07 21:33 | disposition home or self-care (01) ==
LOC: ED 13:34
DX: R19.00 Intra-abdominal and pelvic swelling, mass and lump, unspecified site (principal); R10.9 Unspecified abdominal pain; M54.9 Dorsalgia, unspecified; R19.7 Diarrhea, unspecified; E11.9 Type 2 diabetes mellitus without complications; I10 Essential (primary) hypertension; Z87.891 Personal history of nicotine dependence
CPT/HCPCS: 36415; 74174; 76705; 80053; 81003; 83605; 83690; 85025; 86140; 96361; 96374; 96375; 96376; 99283; J1170; J1885; J2405; Q9967

== ENCOUNTER 2020-04-08 14:07 | Inpatient (IN) ==
[2020-04-08] MEDS ORDERED: Ondansetron 4 mg VIAL 2 MG/ML 2 ml VIAL IV PRN (15:10)
[2020-04-08] MEDS ORDERED: Dextrose 50% Syringe 50 ml 25 GM/50 ML SYRINGE IV PUSH PRN (15:19)
[2020-04-08] MEDS ORDERED: Morphine 10 MG/ML VIAL (1 ml) IV PRN ×2 (15:37→22:00)
[2020-04-08 15:42] LABS: Hematocrit 39 % (42-52); Hemoglobin 13.4 g/dL (14.0-18.0); Mean Corpuscular HGB Conc 35 g/dL (31-36); Mean Corpuscular Hemoglobin 31 pg (27-31); Mean Corpuscular Volume 89 fL (80-94); Platelet Count 240 10^3/uL (150-450); Red Blood Count 4.33 10^6 /uL (4.18-5.48); Red Cell Distribution Width 15 % (10-15); White Blood Count 7.2 10^3/uL (3.5-10.8)
[2020-04-08] MEDS ORDERED: fentaNYL PATCH 25 MCG/HR 1 PATCH TRANSDERM SCH (16:00)
[2020-04-08 16:03] LABS: Albumin 3.6 g/dL (3.2-5.2); Albumin/Globulin Ratio 1.5 (1-3); Calcium 9.1 mg/dL (8.6-10.3); EGFR African American 107.4 (>60); EGFR Non-African American 88.7 (>60); Globulin 2.4 g/dL (2-4); Potassium 3.6 mmol/L (3.5-5.0)
[2020-04-08] MEDS ORDERED: Morphine 10 MG/ML VIAL (1 ml) ONE (16:22)
[2020-04-08] MEDS: NS 0.9% 1000 ml BAG 1,000 ML IV SCH (17:46)
[2020-04-08] MEDS ORDERED: Morphine 10 MG/ML VIAL (1 ml) IV ONE (18:04)
[2020-04-08] MEDS: fentaNYL Patch Check Q Shift NOTE FOLLOW UP SCH (19:20)
[2020-04-08] MEDS ORDERED: Iodixanol (CONTRAST) 320 MG/ML 100 ML SDV IV ONE (20:24)
[2020-04-09] MEDS: NS 0.9% 1000 ml BAG 1,000 ML IV SCH ×2 (05:43→17:55)
[2020-04-09] MEDS: fentaNYL Patch Check Q Shift NOTE FOLLOW UP SCH ×2 (07:16→19:09)
[2020-04-09 07:19] LABS: Albumin 3.2 g/dL (3.2-5.2); Albumin/Globulin Ratio 1.5 (1-3); BUN/Creatinine Ratio 17.2 (8-20); EGFR African American 157.1 (>60); EGFR Non-African American 129.8 (>60); Globulin 2.2 g/dL (2-4); Potassium 3.5 mmol/L (3.5-5.0); Total Protein 5.4 g/dL (6.4-8.9)
[2020-04-09 07:27] LABS: Total Bilirubin 13.9 mg/dL (0.2-1.0)
[2020-04-09 08:12] LABS: Hematocrit 36 % (42-52); Hemoglobin 12.7 g/dL (14.0-18.0); Mean Corpuscular HGB Conc 35 g/dL (31-36); Mean Corpuscular Hemoglobin 31 pg (27-31); Mean Corpuscular Volume 89 fL (80-94); Mean Platelet Volume 10.8 fL (7.4-10.4); Platelet Count 183 10^3/uL (150-450); Red Blood Count 4.11 10^6 /uL (4.18-5.48); Red Cell Distribution Width 15 % (10-15); White Blood Count 4.6 10^3/uL (3.5-10.8)
[2020-04-09 08:44] LABS: ABS Eosinophils 0.2 10^3/ul (0-0.6); ABS Neutrophils 2.7 10^3/ul (1.5-7.7)
[2020-04-09] MEDS: Morphine 10 MG/ML VIAL (1 ml) IV PRN (11:47)
[2020-04-09] MEDS: Morphine ORAL.SOLN 10 mg 2 mg/ml UDC 5 ml (10 mg) PO PRN ×2 (16:30→20:51)
[2020-04-10] MEDS: NS 0.9% 1000 ml BAG 1,000 ML IV SCH (04:24)
[2020-04-10 06:30] LABS: Hematocrit 34 % (42-52); Hemoglobin 12.3 g/dL (14.0-18.0); Mean Corpuscular HGB Conc 36 g/dL (31-36); Mean Corpuscular Hemoglobin 32 pg (27-31); Mean Corpuscular Volume 88 fL (80-94); Mean Platelet Volume 10.8 fL (7.4-10.4); Platelet Count 163 10^3/uL (150-450); Red Blood Count 3.89 10^6 /uL (4.18-5.48); Red Cell Distribution Width 15 % (10-15); White Blood Count 5.3 10^3/uL (3.5-10.8)
[2020-04-10 06:47] LABS: Albumin 3.2 g/dL (3.2-5.2); Albumin/Globulin Ratio 1.4 (1-3); BUN/Creatinine Ratio 15.1 (8-20); Calcium 9.2 mg/dL (8.6-10.3); EGFR Non-African American 111.6 (>60); Globulin 2.3 g/dL (2-4); Potassium 3.3 mmol/L (3.5-5.0); Total Protein 5.5 g/dL (6.4-8.9)
[2020-04-10 06:52] LABS: Total Bilirubin 14.2 mg/dL (0.2-1.0)
[2020-04-10] MEDS: fentaNYL Patch Check Q Shift NOTE FOLLOW UP SCH (07:17)
[2020-04-10 08:57] LABS: ABS Neutrophils 3.4 10^3/ul (1.5-7.7)
[2020-04-10 08:58] LABS: ABS Basophils 0.1 10^3/ul (0-0.2); ABS Eosinophils 0.3 10^3/ul (0-0.6)
[2020-04-10] MEDS: Morphine ORAL.SOLN 10 mg 2 mg/ml UDC 5 ml (10 mg) PO PRN (15:09)
[2020-04-10 15:15] VITALS: BP 130/83
[2020-04-10] MEDS: Morphine 10 MG/ML VIAL (1 ml) IV PRN (17:11)
[2020-04-10] MEDS ORDERED: Morphine 10 MG/ML VIAL (1 ml) IV ONE (17:49)
== END 2020-04-10 17:20 | disposition home or self-care (01) | DRG 445 ==
LOC: CHOA 14:07 → SSU 15:10
PROVIDERS: ADMIT Internal Medicine Hematology & Oncology; ATTEND Internal Medicine Hematology & Oncology